=== PATIENT | female | born 1985 | race Caucasian/White ===

== ENCOUNTER → 2017-08-13 | Outpatient (CLI) | payer BC ==
--- NOTE | 2017-08-13 14:58 | RAD ---
INDICATION: RT ANKLE PAIN COMPARISON: None. IMPRESSION: Right ankle: 2 views obtained without definite acute fracture or dislocation.
== END | disposition home or self-care (01) ==
LOC: PMG 14:30
PROVIDERS: ATTEND Nurse Practitioner Family
DX: M25.571 Pain in right ankle and joints of right foot (principal)
CPT/HCPCS: 73600